=== PATIENT | female | born 1985 | race African-American/Black ===

== ENCOUNTER 2024-09-26 14:31 | Inpatient (IN) | payer OTHER ==
[~2024-09-26] VITALS: Ht 170.2 cm; Wt 69.9 kg
[2024-09-26] MEDS: SODIUM CHLORIDE 0.9% 1,000 ML IV ONE (15:11)
[2024-09-26 15:52] LABS: HEMATOCRIT. 30.8 % (36.0-48.0); HEMOGLOBIN. 10.2 g/dL (12.0-16.0); MEAN CORPUSCULAR HEMOGLOBIN 31.6 pg (28.0-32.0); MEAN CORPUSCULAR VOLUME 95.6 fL (81.0-99.0); MEAN PLATELET VOLUME 8.8 fl (7.4-10.4); PLATELET 303 x1000/uL (130-400); RED BLOOD CELL COUNT 3.22 mill/uL (4.2-5.4); WHITE BLOOD COUNT 15.3 x1000/uL (4.5-11.0)
[2024-09-26 15:58] LABS: DIFFERENTIAL COMMENT 1
[2024-09-26 15:59] LABS: CHLORIDE 102 mEq/L (98-107); SODIUM 136 mEq/L (136-145)
[2024-09-26 16:00] LABS: CARBON DIOXIDE 19 mEq/L (21-32); PARTIAL THROMBOPLASTIN TIME 22.1 sec (23.4-31.0); PROTHROMBIN TIME 10.6 sec (9.6-11.0)
[2024-09-26 16:01] LABS: CALCIUM 9.2 mg/dL (8.7-10.4)
[2024-09-26 16:05] LABS: GLUCOSE 189 mg/dL (70-105)
[2024-09-26 16:06] LABS: UREA NITROGEN BLOOD 12 mg/dL (9-23)
[2024-09-26 16:23] LABS: B-HCG QUANTITATIVE 13001 mIU/mL (<3)
[2024-09-26] MEDS: FENTANYL CITRATE/PF 50MCG/ML 2ML VIAL IV ONE (18:05)
[2024-09-26] MEDS ORDERED: ONDANSETRON HCL 4MG/2ML INJ IV PRN ×3 (18:15→20:45)
[2024-09-26] MEDS ORDERED: CLONIDINE 0.1MG TABLET PO PRN (18:15)
[2024-09-26] MEDS ORDERED: NALOXONE HCL 0.4MG/ML VIAL IV PRN (18:15)
[2024-09-26] MEDS ORDERED: MORPHINE SULFATE 2 MG/ML INJ (NOT FOR IM USE) IV PRN ×2 (18:15→20:48)
[2024-09-26] MEDS: SODIUM CHLORIDE 0.9% 1,000 ML IV SCH (19:13)
[2024-09-26] MEDS ORDERED: GLYCOPYRROLATE 0.2 MG/ML 2ML VIAL IV PRN (19:15)
[2024-09-26] MEDS ORDERED: LABETALOL 5MG/ML 4ML INJ IV PRN (19:15)
[2024-09-26] MEDS ORDERED: MEPERIDINE HCL/PF 25MG/ML CPJ IV PRN (19:15)
[2024-09-26] MEDS ORDERED: HYDRALAZINE 20MG/ML VIAL IV PRN (19:15)
[2024-09-26] MEDS ORDERED: HYDROMORPHONE HCL/PF 1MG/ML INJ IV PRN (19:15)
[2024-09-26 20:00] VITALS: BP 105/56; PULSE 114; RESP 26; TEMP 36.5; O2SAT 94
[2024-09-26] MEDS ORDERED: ALBUMIN HUMAN 12.5G/250ML (5%) IV ONE (20:44)
[2024-09-26] MEDS ORDERED: ACETAMINOPHEN 650MG SUPP PR PRN (20:45)
[2024-09-26] MEDS ORDERED: CEFAZOLIN 1000MG PREMIX 50 ML IV SCH (21:00)
[2024-09-26] MEDS ORDERED: DEXT 5%/0.45% NACL KCL 20MEQ/L 1,000 ML IV SCH (21:00)
[2024-09-26] MEDS ORDERED: PHENYLEPHRINE 50MG/250ML PMX 250 ML IV ONE (21:17)
[2024-09-26] MEDS: HYDROMORPHONE HCL/PF 1MG/ML INJ IV PRN ×2 (21:24→21:37)
[2024-09-26 21:40] LABS: HEMATOCRIT 21.4 % (36.0-48.0); HEMOGLOBIN 7.1 g/dL (12.0-16.0)
[2024-09-26 22:50] VITALS: BP 105/56; PULSE 108; RESP 26; TEMP 36.5
[2024-09-27] MEDS: MORPHINE SULFATE 4 MG/ML INJ (FOR IV/IM USE) IV PRN (00:32)
[2024-09-27 01:29] LABS: PLATELET ESTIMATE NORMAL
[2024-09-27 02:16] LABS: HEMATOCRIT 32.2 % (36.0-48.0); HEMOGLOBIN 10.8 g/dL (12.0-16.0)
[2024-09-27 04:00] VITALS: BP 116/69; PULSE 113; RESP 20; TEMP 36.4; O2SAT 98
[2024-09-27] MEDS: PIPERACILLIN/TAZO 3.375G/50ML 50 ML IV SCH (05:36)
[2024-09-27 07:36] LABS: BASOPHILS % 0.2 % (0.0-2.0); HEMATOCRIT. 29.6 % (36.0-48.0); HEMOGLOBIN. 9.9 g/dL (12.0-16.0); LYMPHOCYTES % 7.4 % (20.0-50.0); MEAN CORPUSCULAR HEMOGLOBIN 30.3 pg (28.0-32.0); MEAN CORPUSCULAR HGB CONC 33.4 g/dL (31.0-37.0); MEAN CORPUSCULAR VOLUME 90.9 fL (81.0-99.0); MEAN PLATELET VOLUME 8.9 fl (7.4-10.4); NEUTROPHILS % 86.4 % (40.0-76.0); PLATELET 178 x1000/uL (130-400); RED BLOOD CELL COUNT 3.26 mill/uL (4.2-5.4); RED CELL DISTRIBUTION WIDTH 15.3 % (11.6-14.6); WHITE BLOOD COUNT 7.2 x1000/uL (4.5-11.0)
[2024-09-27 08:00] VITALS: BP 104/67; PULSE 111; RESP 19; TEMP 36.7; O2SAT 99
[2024-09-27 08:04] LABS: PROTHROMBIN TIME 11.1 sec (9.6-11.0)
[2024-09-27 08:11] LABS: CHLORIDE 107 mEq/L (98-107); POTASSIUM 4.4 mEq/L (3.5-5.1); SODIUM 142 mEq/L (136-145)
[2024-09-27 08:12] LABS: CALCIUM 8.8 mg/dL (8.7-10.4); CARBON DIOXIDE 21 mEq/L (21-32)
[2024-09-27 08:17] LABS: CREATININE 0.7 mg/dL (0.6-1.0); GLUCOSE 115 mg/dL (70-105); UREA NITROGEN BLOOD 7 mg/dL (9-23)
[2024-09-27] MEDS: PANTOPRAZOLE SODIUM 40 MG/VIAL IV SCH (08:38)
[2024-09-27] MEDS: FAMOTIDINE 20MG/2ML VIAL IV SCH (08:38)
[2024-09-27] MEDS: CEFAZOLIN 1000MG PREMIX 50ML IV SCH (11:12)
[2024-09-27] MEDS: DEXT 5%/0.45% NACL KCL 20MEQ/L 1,000 ML IV SCH (11:22)
[2024-09-27 12:00] VITALS: BP 106/65; PULSE 99; RESP 19; TEMP 36.7; O2SAT 99
[2024-09-27] MEDS: HYDROCODONE/ACETAMINOPHEN 5/325MG TABLET PO PRN (14:09)
[2024-09-27 16:00] VITALS: BP_SYST 105; BP_SYST 112; BP_DIAS 67; BP_DIAS 70; PULSE 93; PULSE 96; RESP 20; TEMP 36.7; O2SAT 98
[2024-09-27 20:00] VITALS: BP 95/57; PULSE 115; RESP 20; TEMP 36.7; O2SAT 97
[2024-09-28] VITALS: BP_SYST 150; BP_SYST 85; BP_DIAS 48; BP_DIAS 60; PULSE 114; PULSE 115; RESP 19; RESP 20; TEMP 36.8; O2SAT 2
[2024-09-28 04:00] VITALS: BP 100/56; PULSE 116; RESP 20; TEMP 36.7; O2SAT 96
[2024-09-28] MEDS: ACETAMINOPHEN 325MG TABLET PO PRN (06:05)
[2024-09-28 08:00] VITALS: BP 104/63; PULSE 100; RESP 16; TEMP 36.7; O2SAT 100
[2024-09-28 12:00] VITALS: PULSE 103; RESP 18; TEMP 36.4; O2SAT 100
[2024-09-28] MEDS: DEXT 5%/0.45% NACL 1000ML 1,000 ML IV SCH (15:45)
[2024-09-28 16:00] VITALS: BP 113/75; PULSE 104; RESP 17; TEMP 36.5; O2SAT 100
[2024-09-28 20:00] VITALS: BP 109/65; PULSE 104; RESP 20; TEMP 36.3; O2SAT 98
[2024-09-28] MEDS: MORPHINE SULFATE 4 MG/ML INJ (FOR IV/IM USE) IV PRN (20:27)
[2024-09-28 21:57] LABS: BASOPHILS % 0.2 % (0.0-2.0); EOSINOPHILS % 0.6 % (0.0-5.0); HEMOGLOBIN. 8.5 g/dL (12.0-16.0); MEAN CORPUSCULAR HEMOGLOBIN 30.5 pg (28.0-32.0); MEAN CORPUSCULAR HGB CONC 34.1 g/dL (31.0-37.0); MEAN CORPUSCULAR VOLUME 89.4 fL (81.0-99.0); MEAN PLATELET VOLUME 8.7 fl (7.4-10.4); MONOCYTES % 6.3 % (2.0-8.0); NEUTROPHILS % 71.9 % (40.0-76.0); PLATELET 218 x1000/uL (130-400); RED CELL DISTRIBUTION WIDTH 15.3 % (11.6-14.6); WHITE BLOOD COUNT 9.7 x1000/uL (4.5-11.0)
[2024-09-28 22:06] LABS: CHLORIDE 106 mEq/L (98-107); POTASSIUM 3.4 mEq/L (3.5-5.1); SODIUM 143 mEq/L (136-145)
[2024-09-28 22:07] LABS: CALCIUM 9.1 mg/dL (8.7-10.4); CARBON DIOXIDE 25 mEq/L (21-32)
[2024-09-28 22:12] LABS: CREATININE 0.7 mg/dL (0.6-1.0); GLUCOSE 91 mg/dL (70-105)
[2024-09-28 22:14] LABS: ALANINE AMINOTRANSFERASE 19 IU/L (10-49); ALBUMIN 3.9 g/dL (3.2-4.8); ASPARTATE AMINOTRANSFERASE 37 IU/L (<34)
[2024-09-28 22:15] LABS: BILIRUBIN TOTAL 0.6 mg/dL (0.1-1.0); PROTEIN TOTAL 6.5 g/dL (6.0-8.3)
[2024-09-28 22:29] LABS: UREA NITROGEN BLOOD < 5 mg/dL (9-23)
[2024-09-29] VITALS: BP 95/48; PULSE 107; RESP 19; TEMP 36.7; O2SAT 95
[2024-09-29 04:00] VITALS: BP 100/65; PULSE 60; RESP 20; TEMP 36.3; O2SAT 98
[2024-09-29 07:34] VITALS: BP 96/62; PULSE 92; RESP 20; TEMP 35.6; O2SAT 100
[2024-09-29 12:00] VITALS: BP 100/63; PULSE 84; RESP 20; TEMP 36.8; O2SAT 100
[2024-09-29 16:00] VITALS: BP 107/72; PULSE 86; RESP 20; TEMP 36.8; O2SAT 98
[2024-09-29 20:00] VITALS: BP 106/78; PULSE 91; RESP 17; TEMP 36.8; O2SAT 100
[2024-09-29] MEDS: DOCUSATE SODIUM 100MG CAPSULE PO SCH (21:08)
[2024-09-29] MEDS: MAGNESIUM HYDROXIDE 400MG/5ML 30ML UDC PO PRN (22:51)
[2024-09-30] VITALS: BP 128/88; PULSE 91; RESP 18; TEMP 36.7; O2SAT 99
[2024-09-30 04:00] VITALS: BP 95/58; PULSE 96; RESP 18; TEMP 37.1; O2SAT 97
[2024-09-30 08:00] VITALS: BP 109/75; PULSE 94; RESP 16; TEMP 36.7; O2SAT 93
[2024-09-30 14:36] VITALS: BP 96/64; PULSE 99; TEMP 98; O2SAT 95
[2024-09-30] MEDS ORDERED: T3 PO (15:05)
[2024-09-30] MEDS ORDERED: FERR325T6 MT (15:08)
[2024-09-30 16:00] VITALS: BP 96/64; PULSE 99; RESP 16; TEMP 37.2; O2SAT 95
== END 2024-09-30 16:38 | disposition home or self-care (01) | DRG 818 ==
LOC: ER 14:56 → EDBEDREQ 16:18 → 8EST 20:58
PROVIDERS: ADMIT Obstetrics & Gynecology; ATTEND Obstetrics & Gynecology
PROC: 10T20ZZ Resection of Products of Conception, Ectopic, Open Approach (ICD-10-PCS; principal; 2024-09-26)
PROC: 30233N1 Transfusion of Nonautologous Red Blood Cells into Peripheral Vein, Percutaneous Approach (ICD-10-PCS; 2024-09-26)
PROC: 0UT50ZZ Resection of Right Fallopian Tube, Open Approach (ICD-10-PCS; 2024-09-26)
DX: O00.101 Right tubal pregnancy without intrauterine pregnancy (principal); K56.7 Ileus, unspecified; Z3A.08 8 weeks gestation of pregnancy; O99.611 Diseases of the digestive system complicating pregnancy, first trimester
CPT/HCPCS: 36415; 71045; 76700; 76705; 76801; 80048; 80053; 84702; 85014; 85018; 85025; 86850; 86900; 86920; 88302; 93880; 97162; 99291; J0690; J1171; J2270; J2470; J2543; J3010; J3490; J7030; P9016; P9041